=== PATIENT | male | born 1960 | race Two or more races ===

== ENCOUNTER 2018-12-14 19:05 | Emergency (ER) | payer OTHER ==
--- NOTE | 2018-12-14 19:21 | NUR ---
PT BIB [facility] FROM HOME FOR N/V TODAY, LEFT FLANK PAIN RADIATING AROUND TO LEFT LOWER ABD AND BLOOD IN URINE STARTING LAST NIGHT. HX OF KIDNEY STONES, STATES FEELS THE SAME. IV IN PLACE ON ARRIVAL, GIVEN 150 FENT AND 4 [employer] BRINGING PAIN DOWN TO 3/10. CONNECTED TO MONITORING, VSS. CALL LIGHT WITHIN REACH. FAMILY AT BEDSIDE. AWAITING ORDERS AT THIS TIME
[2018-12-14 19:54] LABS: BASOPHILS # (AUTO) 0.01 x10^3/uL (0-0.1); BASOPHILS % (AUTO) 0 % (0-1); EOSINOPHILS # (AUTO) 0.02 x10^3/uL (0-0.4); EOSINOPHILS % (AUTO) 0 % (1-7); LYMPHOCYTES # (AUTO) 0.71 x10^3/uL (1-3.4); LYMPHOCYTES % (AUTO) 7 % (22-44); MD NO; MEAN CORPUSCULAR HEMOGLOBIN 32.5 pg (27.5-34.5); MEAN CORPUSCULAR HGB CONC 33.8 g/dL (33.2-36.2); MEAN CORPUSCULAR VOLUME 96.2 fL (81-97); MEAN PLATELET VOLUME 8.8 fL (7.4-10.4); MONOCYTES # (AUTO) 0.32 x10^3/uL (0.2-0.8); MONOCYTES % (AUTO) 3 % (2-9); NEUTROPHILS # (AUTO) 9.52 x10^3/uL (1.8-6.8); NEUTROPHILS % (AUTO) 90 % (42-75); PLATELET COUNT 195 x10^3/uL (130-400); RED CELL DISTRIBUTION WIDTH 13.6 % (9.4-14.8)
--- NOTE | 2018-12-14 19:54 | NUR ---
PT AMB TO RESTROOM WITH STEADY GAIT. UA COLLECTED AND SENT TO LAB. URINE RED IN APPEARANCE. NO PAIN REPORTED FROM PT. CALL LIGHT WITHIN REACH.
[2018-12-14 20:02] LABS: ALANINE AMINOTRANSFERASE 16 U/L (12-78); ALBUMIN 4.1 g/dL (3.4-5.0); ANION GAP 7 mmol/L (5-15); CALCIUM 9.1 mg/dL (8.5-10.1); CHLORIDE 110 mmol/L (98-107); CREATININE 1.05 mg/dL (0.7-1.3)
[2018-12-14 20:05] LABS: ALKALINE PHOSPHATASE 54 U/L (45-117); BILIRUBIN,TOTAL 0.6 mg/dL (0.2-1.0); TOTAL PROTEIN 7.7 g/dL (6.4-8.2)
[2018-12-14] MEDS ORDERED: MORPHINE SULFATE 4 MG/ML, 1ML ONE (20:05)
[2018-12-14] MEDS ORDERED: ONDANSETRON 2MG/ML, 2ML ONE (20:05)
[2018-12-14] MEDS ORDERED: KETOROLAC 30 MG/1 ML ONE (20:05)
[2018-12-14 20:10] LABS: CULTURE INDICATED? YES; MICROSCOPIC INDICATED
--- NOTE | 2018-12-14 20:13 | NUR ---
AFTER GETTING BACK FROM BATH ROOM PT EXPERIENCED SEVERE INCREASE IN PAIN IN LEFT FLANK BECAME NAUSEATED, 8/10 PAIN. PA INFORMED, ORDERS RECEIVED, PT MEDICATED FOR PAIN PER JUL. MD TO BEDSIDE FOR ASSESSMENT, CT ORDERED AT THIS TIME
--- NOTE | 2018-12-14 20:23 | NUR ---
TAKEN TO CT
--- NOTE | 2018-12-14 20:29 | NUR ---
BACK FROM CT AT THIS TIME
[2018-12-14] MEDS ORDERED: MORPHINE SULFATE 4 MG/ML, 1ML IVPush PRN (20:30)
[2018-12-14] MEDS ORDERED: ONDANSETRON 2MG/ML, 2ML IVPush ONE (20:30)
[2018-12-14] MEDS ORDERED: KETOROLAC 30 MG/1 ML IVPush ONE (20:30)
[2018-12-14] MEDS ORDERED: TAMSULOSIN 0.4 MG CAP.ER.24H ONE (20:55)
[2018-12-14] MEDS ORDERED: TAMSULOSIN 0.4 MG CAP.ER.24H PO ONE (21:00)
--- NOTE | 2018-12-14 21:10 | NUR ---
PA TO BEDSIDE TO RECHECK PT AND UPDATE FAMILY ON POC.
[2018-12-14] MEDS ORDERED: CEFTRIAXONE PMX 1GM/50ML 50 ML ONE (21:26)
[2018-12-14] MEDS ORDERED: CEFTRIAXONE PMX 1GM/50ML 50 ML IVPB ONE (21:30)
--- NOTE | 2018-12-14 21:37 | NUR ---
ANUM RUNNING. AWAITING DC PAPERWORK AT THIS TIME
[2018-12-14 22:07] VITALS: BP 127/75
== END 2018-12-14 22:09 | disposition home or self-care (01) ==
LOC: ED 21:11
DX: N13.6 Pyonephrosis (principal); N20.1 Calculus of ureter; R31.9 Hematuria, unspecified; R10.9 Unspecified abdominal pain
CPT/HCPCS: 36415; 74176; 80053; 81001; 85025; 87086; 96365; 96375; 99284; J0696; J1885; J2270; J2405

== ENCOUNTER 2018-12-16 23:05 | Emergency (ER) | payer OTHER ==
[~2018-12-16] VITALS: Ht 170.2 cm; Wt 74.5 kg
[2018-12-17 01:34] VITALS: BP 117/76
== END 2018-12-17 01:36 | disposition home or self-care (01) ==
LOC: ED 12-17 00:24
DX: N20.1 Calculus of ureter (principal)
CPT/HCPCS: 36415; 80053; 81001; 83690; 85025; 96374; 96375; 99283; J1885; J2270; J2405